=== PATIENT | female | born 1965 | race Caucasian/White ===

== ENCOUNTER 2017-05-30 22:38 | Inpatient (IN) | payer BC ==
[2017-05-30 23:16] VITALS: BMI 36.0
--- NOTE | 2017-05-31 00:16 | PDOC ---
History of Present Illness - General Chief Complaint: Blood Pressure Problem Stated Complaint: Blood Pressure Problem Time Seen by Provider: 05/30/17 23:34 tPA Exclusion Checklist 0-3hr - Time Elapsed Date last known well: 05/31/17 Time last known well: 06:00 Elaspsed time: 1 Day(s) and 20 Hour(s) and 33 Minutes - Thrombolytic Therapy Candidate Is the patient eligible for Thrombolytic Therapy?: No - Exclusion Criteria 0-3hr SBP greater than 185 or DBP greater than 110mmHg despite tx: No Recent IC/spinal surgery,head trauma or stroke w/in last 3mo: No Hx of previous IC hemorrhage, IC neoplasm, AVM or aneurysm: No Active internal bleeding: No Blding diathesis(low plt ct, inc PTT,INR>1.7 or use of NOAC): No Symptoms suggest subarachnoid hemorrhage: No CT demonstrates multilobar infarct(>1/3 cerebral hemiphere): No Arterial puncture at noncompressible site in previous 7 days: No Blood glucose concentration less than 50mg/dL (2.7mmol/L): No - Relative Exclusion Criteria 0-3h Life expectancy <1yr/severe co-morbid illness/ELECTRONICS DESIGN ENGINEER on admit: No : No Patient/family refused: No Rapid improvement: Yes Stroke severity too mild: Yes Recent acute MT (w/in previous 3 months): No Seizure at onset with postictal residual neuro impairments: No Major surgery or serious trauma w/in previous 14 days: No Recent GI or hemorrhage (w/in previous 21 days): No - Ineligibility reason(s) Reasons No tPA given: See reason(s) noted above (NO DEFICITS WHEN PATINET ARRIVED) NIH Stroke Scale - Last Known Well Date/Time & Onset Date Last Known Well: 05/31/17 Time Last Known Well: 06:00 - Initial Evaluation Level of consciousness: Alert Ask patient the month and their age: Answers both correctly Ask patient to open & close eyes; make fist and let go: Obeys both correctly Best gaze (horizontal eye movement): Normal Visual field testing: No visual field loss Facial paresis (Show teeth/raise eyebrows/close eyes tight): Normal symmetrical movement Motor Function: Left Arm: Normal Motor Function: Right Arm: Normal (extends arm 90 (or 45) degrees for 10 seconds without drift Motor Function: Left Leg: Normal (extends leg 30 degrees for 5 seconds without drift) Motor Function: Right Leg: Normal (extends leg 30 degrees for 5 seconds without drift) Limb Ataxia: No ataxia Sensory(Use pinprick test arms,legs,trunk,face/side to side): Normal Best language (Describe picture, name items, read sentences): No Aphasia Dysarthria (read several words): Normal articulation Extinction and Inattention: No abnormality - Total Score NIH Stroke Scale Score: 0 Past History - Past Medical History Allergies/Adverse Reactions: Allergies Allergy/AdvReac Type Severity Reaction Status Date / Time No Known Allergies Allergy Verified 05/30/17 23:12 Home Medications: Ambulatory Orders Losartan Potassium 50 mg PO BID 05/31/17 Acetaminophen [Tylenol .Extra-Strength -] 1,000 mg PO BID PRN #0 tablet Aspirin [ASA -] 81 mg PO DAILY #30 tab.chew 06/01/17 Atorvastatin Ca [Lipitor] 20 mg PO HS #30 tablet 06/01/17 Hydrochlorothiazide [Hctz -] 12.5 mg PO DAILY #30 cap 06/01/17 Metoprolol Succinate [Toprol Xl -] 25 mg PO BID #60 tab.sr.24h 06/01/17 HTN: Yes - Psycho/Social/Smoking Cessation Hx Suicidal Ideation: No Smoking History: Never smoked Information on smoking cessation initiated: No Hx Alcohol Use: No Drug/Substance Use Hx: No Substance Use Type: None *Physical Exam - Vital Signs Last Vital Signs Temp Pulse Resp BP Pulse Ox 98.1 F 72 20 170/105 98 05/30/17 23:13 05/30/17 23:13 05/30/17 23:13 05/30/17 23:13 05/30/17 23:13 ED Treatment Course - LABORATORY CBC & Chemistry Diagram: 06/01/17 05:35 05/31/17 05:40 *DC/Admit/Observation/Transfer Diagnosis at time of Disposition: TIA (transient ischemic attack) Qualifiers: Transient cerebral ischemia type: amaurosis fugax Qualified Code(s): G45.3 - Amaurosis fugax - Discharge Dispostion Disposition: HOME Condition at time of disposition: Stable - Prescriptions Attending Attestation - Resident Resident Name: Jose Alejandro Dunn - HPI HPI: 06/01/17 16:25 52 yo female who flew from [place] and experienced transient rt eye vision loss. PMH HTn 06/02/17 02:27 - Physicial Exam PE: 06/01/17 16:27 WNWD 52 yo female presents after an episode of transient rt eye vision loss HEENT head normocephalic,no evidence of trauma neck supple eyes -brice eomi throat wnl cvr [id number] lungs cta b/l abd protuberant.nontender skin warm,no rashes neuro NIHSS was done bedisde with resident ,NIHSS=zero 06/01/17 16:34 06/02/17 02:27 - Medical Decision Making 06/01/17 16:35 ct scan head done /spoke w Dr patiño,pt given ASA and plavix pt not candidate for TPA ,no deficts upon arrival Admitted for amaurosis fugax,pt requires further neuro w/u and imaging 06/02/17 02:27
[2017-05-31] MEDS ORDERED: ACETAMINOPHEN 325 MG TABLET (FP) PO ONE (00:28)
[2017-05-31] MEDS ORDERED: ACETAMINOPHEN 325 MG TABLET (FP) ONE (00:35)
--- NOTE | 2017-05-31 00:37 | PDOC ---
History of Present Illness - General Chief Complaint: Blood Pressure Problem Stated Complaint: Blood Pressure Problem Time Seen by Provider: 05/30/17 23:34 History Source: Patient Exam Limitations: No Limitations - History of Present Illness Initial Comments: 05/31/17 00:27 The patient is a 52F with a PMH of HTN, anxiety, GERD, who presents to the ED after an episode of R eye blindness. The patient states that she experienced complete blackout in the vision of her R eye for 5-10 seconds. At the same time , she experienced L foot tingling at the bottom of her foot. The eye blackout has resolved, but the L foot tingling persists but was present 1-2 months previously. This has never happened before. Meds: Losartan and lasix 20 Past surg: non-contributory Allergies: compozine, cipro, x-ray dye Past History - Past Medical History Allergies/Adverse Reactions: Allergies Allergy/AdvReac Type Severity Reaction Status Date / Time No Known Allergies Allergy Verified 05/30/17 23:12 Home Medications: Ambulatory Orders Losartan Potassium 50 mg PO BID 05/31/17 HTN: Yes - Psycho/Social/Smoking Cessation Hx Suicidal Ideation: No Smoking History: Never smoked Information on smoking cessation initiated: No Hx Alcohol Use: No Drug/Substance Use Hx: No Substance Use Type: None Review of Systems - Review of Systems Able to Perform ROS?: Yes Is the patient limited Bulgarian proficient: No Constitutional: No: Chills, Diaphoresis, Fever, Weakness HEENTM: Yes: Blurred Vision, Recent change in vision (R eye blackout) Respiratory: No: Cough, Shortness of Breath Cardiac (ROS): No: Chest Pain ABD/GI: No: Other (Abd pain) : No: Dysuria, Discharge Neurological: Yes: Headache, Tingling (On bottom of L foot). No: Numbness, Paresthesia, Weakness *Physical Exam - Vital Signs Last Vital Signs Temp Pulse Resp BP Pulse Ox 98.1 F 72 20 170/105 98 05/30/17 23:13 05/30/17 23:13 05/30/17 23:13 05/30/17 23:13 05/30/17 23:13 - Physical Exam General Appearance: Yes: Nourished, Appropriately Dressed. No: Apparent Distress HEENT: positive: Normal Voice. negative: Pale Conjunctivae, Scleral Icterus (R) , Scleral Icterus (L) Neck: positive: Trachea midline Respiratory/Chest: positive: Lungs Clear, Normal Breath Sounds. negative: Chest Tender, Respiratory Distress, Accessory Muscle Use Cardiovascular: positive: Regular Rhythm, Regular Rate, S1, S2, Edema (b/l lower extremity) Gastrointestinal/Abdominal: positive: Flat, Soft. negative: Tender, Guarding, Rebound, Tenderness Extremity: positive: Normal Inspection, Normal Range of Motion, Pelvis Stable Integumentary: positive: Dry, Warm, Swelling. negative: Cyanotic, Rash Neurologic: positive: balling head tender II-XII NML intact, Fully Oriented, Alert, Normal Mood/ Affect, Normal Response, Motor Strength 5/5, Responsive, Finger to Nose (Normal) , Other (0 on NIH score). negative: Numbness, Sensory Deficit, Confused, Disoriented, Depressed Affect Heart Score/ECG Review - History History: Slightly suspicious - Electrocardiogram EKG: Non specific repolarization disturbance - Age Age: 45-65 - Risk Factors Risk Factors Heart Score: Yes Hx Hypertension - ECG Intrepretation Rhythm: Regular Rhythm - Jackson Jackson: Normal - ECG Impressions Normal ECG: No Comment:: 05/31/17 01:42 T wave inversions in III and V1. Q wave present in II. No EKG to compare. Cardiac set ordered after reading EKG. ED Treatment Course - LABORATORY CBC & Chemistry Diagram: 05/31/17 00:37 05/31/17 00:37 - RADIOLOGY Radiology Studies Ordered: Category Date Time Status HEAD CT WITHOUT CONTRAST [CT] Stat CT Scan 05/31/17 00:19 Ordered Medical Decision Making - Medical Decision Making 05/31/17 00:41 Patient is a 52F with a PMH of HTN, anxiety, and GERD who presents to the ED s/ p R eye visual disturbances and L foot tingling. With the patient's medical history, a TIA/stroke must be ruled out. Repeat BP in room was 178/111. I have ordered labs and a head CT. Will update patient as labs/imaging comes in. 05/31/17 01:43 EKG showed signs of ischemia, down going T-waves. See EKG reading. Cardiac profile ordered. Patient had head CT. Will monitor for results. 05/31/17 02:07 CT results show: Focus of low density right martínez. Indeterminate for infarct. Correlate with symptoms. No other infarct is identified. Please note that infarcts less than 6 hours old may not be detectable on CT. Obtain MRI if indicated. No hemorrhage. No mass. No shift or herniation. Osseous structures are intact. We have spoken to the neurologist and he agrees on admitting the patient. *DC/Admit/Observation/Transfer Diagnosis at time of Disposition: Transient cerebral ischemia Qualifiers: Transient cerebral ischemia type: amaurosis fugax Qualified Code(s): G45.3 - Amaurosis fugax - Discharge Dispostion Condition at time of disposition: Stable Admit: Yes - Referrals Referrals: Valentine Dejesus MD [Primary Care Provider] - - Attestations Physician Attestion: 05/31/17 02:13 I, Dr. Jose Alejandro Dunn, attest that this document has been prepared under my direction and personally reviewed by me in its entirety. I further attest, that it accurately reflects all work, treatment, procedures and medical decision -making performed by me.
[2017-05-31 00:47] LABS: MCH 27.7 pg (25.7-33.7); MCHC 32.1 g/dl (32.0-36.0); MEAN CELL VOLUME 86.4 fl (80-96); MEAN PLT VOLUME 9.7 fl (7.5-11.1); PLATELET COUNT 249 K/MM3 (134-434); RDW 13.9 % (11.6-15.6); WHITE BLOOD COUNT 7.2 K/mm3 (4.0-10.0)
[2017-05-31] MEDS ORDERED: ASPIRIN 81 MG CHEWABLE TABLETS PO ONE (00:52)
[2017-05-31 01:14] LABS: ALBUMIN 3.9 g/dl (3.4-5.0); ANION GAP 9 (8-16); BILIRUBIN,TOTAL 0.5 mg/dL (0.2-1.0); CALCIUM 9.7 mg/dL (8.5-10.1); CO2 26 mmol/L (21-32); CREATININE 0.5 mg/dL (0.55-1.02); GLUCOSE,RANDOM 88 mg/dL (74-106); MAGNESIUM 2.4 mg/dL (1.8-2.4); SGOT/AST 22 U/L (15-37); SGPT/ALT 30 U/L (12-78); TOT PROT 7.4 g/dl (6.4-8.2)
[2017-05-31 01:16] LABS: ALK PHOS 66 U/L (45-117); TROPONIN I < 0.02 ng/ml (0.00-0.05)
[2017-05-31] MEDS ORDERED: ATORVASTATIN CA 80 MG TABLET (FP) PO ONE (02:05)
[2017-05-31] MEDS ORDERED: CLOPIDOGREL BISULFATE 75 MG TABLET (FP) PO ONE ×2 (02:23→02:33)
[2017-05-31] MEDS ORDERED: ATORVASTATIN CA 80 MG TABLET (FP) ONE (02:26)
[2017-05-31] MEDS ORDERED: ATORVASTATIN CA 10 MG TABLET (FP) PO ONE (02:29)
[2017-05-31 04:03] LABS: INR 1.02 (0.82-1.09); PROTHROMBIN TIME (PATIENT) 11.2 SEC (9.98-11.88)
[2017-05-31 06:27] LABS: ALBUMIN 3.6 g/dl (3.4-5.0); ALK PHOS 61 U/L (45-117); ANION GAP 8 (8-16); BILIRUBIN,TOTAL 0.5 mg/dL (0.2-1.0); CALCIUM 9.4 mg/dL (8.5-10.1); CO2 26 mmol/L (21-32); CREATININE 0.5 mg/dL (0.55-1.02); GLUCOSE,RANDOM 93 mg/dL (74-106); SGOT/AST 16 U/L (15-37); SGPT/ALT 25 U/L (12-78); TOT PROT 6.9 g/dl (6.4-8.2)
[2017-05-31 07:51] LABS: BASOPHIL 0.8 % (0-2.0); EOSINOPHIL 1.7 % (0-4.5); MCH 28.3 pg (25.7-33.7); MEAN CELL VOLUME 85.7 fl (80-96); MEAN PLT VOLUME 9.8 fl (7.5-11.1); NEUTROPHILS 42.4 % (42.8-82.8); PLATELET COUNT 205 K/MM3 (134-434); RDW 13.8 % (11.6-15.6); WHITE BLOOD COUNT 5.4 K/mm3 (4.0-10.0)
--- NOTE | 2017-05-31 07:54 | CON.NEURO ---
Consult - History of Present Illness History of Present Illness: HPI 52 year old female hsitory of htn, anxiety and reflux . she came to emergency after experiencing right eye blindness for few hours. She has travelled from [place] to [facility] on may 30. On the way to [place], she has headhace as well. Patient noticed that she cant see anything from right eye and was complete dark. She denies any prior eye problem. She takes losartan and prilosec at home. Her bp at home was very high , diastolic upto 135 and she called her pmd in [place] and advise to take extra losartan. Patient is feeling fine and had ct scan of brain and showed there is lacunar ( old ) in brain stem - Alcohol/Substance Use Hx Alcohol Use: No - Smoking History Smoking history: Never smoked Home Medications - Allergies Allergies/Adverse Reactions: Allergies Allergy/AdvReac Type Severity Reaction Status Date / Time No Known Allergies Allergy Verified 05/30/17 23:12 - Home Medications Home Medications: Ambulatory Orders Losartan Potassium 50 mg PO BID 05/31/17 Physical Exam-Neuro Vital Signs: Vital Signs Temperature 98.6 F 05/31/17 02:06 Pulse Rate 67 05/31/17 02:06 Respiratory Rate 05/31/17 02:06 Blood Pressure 138/68 05/31/17 02:06 O2 Sat by Pulse Oximetry (%) 96 05/31/17 02:06 Labs: CBC, BMP 05/31/17 05:40 INR, PTT INR 1.02 (0.82-1.09) 05/31/17 03:34 - Neuro Exam Cranial Nerves II-XII Intact: Yes Babinski: Present Motor Strength: 5/5: Left Arm, Right Arm, Left Leg, Right Leg NIH Stroke Scale - Total Score NIH Stroke Scale Score: 0 Imaging - Results Cat Scan: Report Reviewed Assessment/Plan cc transient painless right eye blindness HPI 52 year old female hsitory of htn, anxiety and reflux . she came to emergency after experiencing right eye blindness for few hours. [place] travelled from [place] to [facility] on may 30. On the way to [place], she has headhace as well. Patient noticed that she cant see anything from right eye and was complete dark. She denies any prior eye problem. She takes losartan and prilosec at home. Her bp at home was very high , diastolic upto 135 and she called her pmd in [place] and advise to take extra losartan. Patient is feeling fine and had ct scan of brain and showed there is lacunar ( old ) in brain stem Meds: Losartan and lasix 20 Past surg: non-contributory Allergies: compozine, cipro, x-ray dye ROS and Social history reviewed in chart Neurological examination BP 178/111 Alert oriented x 3, speech is normal eomi, no face asymmetry, no sensory loss on face and pupils are reactive visual field normal by confrontation motor 5/5 all normal sensation is normal reflex are normal ct head showed lacunar infarct Assessment- amurosis fugox , risk factor htn Plan mri of brain and mra of neck - continue aspirin and plavix for now, for long-term she would need only one - continue statin for now - optho consult thanks for consult jessika patiño md Neurology Attending.
--- NOTE | 2017-05-31 08:10 | HP ---
Admitting History and Physical - Admission History of Present Illness: 52 year old female hsitory of htn, anxiety and reflux . she came to emergency after experiencing right eye blindness for few hours. She has travelled from [place] to [place] on may 30. On the way to [place], she has headache as well. Patient noticed that she cant see anything from right eye and was complete dark. She denies any prior eye problem. She takes losartan and prilosec at home. Her bp at home was very high , diastolic upto 135 and she called her pmd in [place] and advise to take extra losartan. Patient is feeling fine and had ct scan of brain and showed there is lacunar ( old ) in brain stem - Past Medical History Cardiovascular: Yes: HTN Gastrointestinal: Yes: GERD Psych: Yes: Anxiety, Panic - Smoking History Smoking history: Never smoked - Alcohol/Substance Use Hx Alcohol Use: No Home Medications - Allergies Allergies/Adverse Reactions: Allergies Allergy/AdvReac Type Severity Reaction Status Date / Time No Known Allergies Allergy Verified 05/30/17 23:12 - Home Medications Home Medications: Ambulatory Orders Losartan Potassium 50 mg PO BID 05/31/17 Acetaminophen [Tylenol .Extra-Strength -] 1,000 mg PO BID PRN #0 tablet Aspirin [ASA -] 81 mg PO DAILY #30 tab.chew 06/01/17 Atorvastatin Ca [Lipitor] 20 mg PO HS #30 tablet 06/01/17 Hydrochlorothiazide [Hctz -] 12.5 mg PO DAILY #30 cap 06/01/17 Metoprolol Succinate [Toprol Xl -] 25 mg PO BID #60 tab.sr.24h 06/01/17 Review of Systems - Review of Systems Eyes: reports: Other (loss of vision in right eye lasting in 15 seconds) Cardiovascular: denies: Chest Pain, Palpitations Respiratory: denies: SOB, SOB on Exertion Gastrointestinal: denies: Abdominal Pain Neurological: reports: Headache, Other (loss of vision for 15 seconds). denies : Change in Speech, Confusion, Dizziness, Numbness Physical Examination Vital Signs: Vital Signs Temperature 98.6 F 05/31/17 02:06 Pulse Rate 67 05/31/17 02:06 Respiratory Rate 05/31/17 02:06 Blood Pressure 138/68 05/31/17 02:06 O2 Sat by Pulse Oximetry (%) 96 07/17/17 02:06 Cardiovascular: Yes: Murmur, S1, S2 Respiratory: Yes: Regular, CTA Bilaterally Gastrointestinal: Yes: Normal Bowel Sounds, Soft Edema: No Neurological: Yes: Alert, Oriented. No: Ataxia, Facial Droop, Unsteady Gait, Weakness Labs: CBC, BMP 05/31/17 05:50 05/31/17 05:40 Imaging - Results Cat Scan: Report Reviewed (old cva) Problem List - Problems (1) TIA (transient ischemic attack) Assessment/Plan: NEUROLOGY CONSULT NOTED CONTINUE WITH ASA/PLAVIX CAROTID US MRI/MRA STATIN Code(s): G45.9 - TRANSIENT CEREBRAL ISCHEMIC ATTACK, UNSPECIFIED Qualifiers: Transient cerebral ischemia type: amaurosis fugax Qualified Code(s): G45.3 - Amaurosis fugax (2) Amaurosis fugax of right eye Assessment/Plan: ABOVE OPHTHALMOLOGY Code(s): G45.3 - AMAUROSIS FUGAX (3) HTN (hypertension) Assessment/Plan: MONITOR OIN MEDS ECHO Code(s): I10 - ESSENTIAL (PRIMARY) HYPERTENSION (4) Anxiety Code(s): F41.9 - ANXIETY DISORDER, UNSPECIFIED (5) Abnormal EKG Assessment/Plan: FOLLOW CE ECHO CARDIO Code(s): R94.31 - ABNORMAL ELECTROCARDIOGRAM [ECG] [EKG] (6) Lymphocytosis Assessment/Plan: FOLLOW UP CBCD Code(s): D72.820 - LYMPHOCYTOSIS (SYMPTOMATIC) (7) Chronic headaches Assessment/Plan: AWAIT W/U NEURO Code(s): R51 - HEADACHE
[2017-05-31 08:47] LABS: CHOLESTEROL 205 mg/dL (50-200); LDL CHOLESTEROL (ONLY SJRH) 129 mg/dL (5-100)
[2017-05-31 08:54] LABS: THYROID STIMULATING HORMONE 1.49 uIU/ml (0.358-3.74)
[2017-05-31] MEDS: LOSARTAN POTASSIUM 50 MG TABLET (FP) PO SCH ×2 (10:07→21:06)
[2017-05-31] MEDS: HEPARIN NA (PORCINE) 5,000 UNITS/ML 1ML VIAL SQ SCH ×2 (10:07→21:07)
[2017-05-31] MEDS: ASPIRIN 325 MG TABLET PO SCH (10:07)
[2017-05-31] MEDS: CLOPIDOGREL BISULFATE 75 MG TABLET (FP) PO SCH (10:08)
--- NOTE | 2017-05-31 12:34 | EKG ---
Test Reason : Blood Pressure : / mmHG Vent. Rate : 061 BPM Atrial Rate : 061 BPM P-R Int : 158 ms QRS Dur : 080 ms QT Int : 414 ms P-R-T Axes : 030 010 022 degrees QTc Int : 416 ms NORMAL SINUS RHYTHM POSSIBLE INFERIOR INFARCT , AGE UNDETERMINED ABNORMAL ECG NO PREVIOUS ECGS AVAILABLE Confirmed by TEQUILA SPARKS MD ([id number]) on 05/31/2017 12:34:17 PM Referred By: Confirmed By:TEQUILA SPARKS MD
--- NOTE | 2017-05-31 14:58 | CON.CARD ---
Consult Consult Specialty:: Cardiology Referred by:: Yaneli Reason for Consultation:: CVA - History of Present Illness Chief Complaint: eye blindness History of Present Illness: 52 year old female hsitory of htn, anxiety and gerd who presents to ER with right eye blindness for few hours. Patient travelled from [place] to [place] yesterday and complained of headache. Than noticed that she cant see anything from right eye. She denies any prior eye problem. She takes losartan and prilosec at home. Her bp at home was very high , diastolic up to 135 and she called her pmd and was advised to take extra losartan. CT head: is lacunar ( old ) in brain stem - History Source History Provided By: Patient, Medical Record - Past Medical History Cardio/Vascular: Yes: HTN Gastrointestinal: Yes: GERD Psych: Yes: Anxiety, Panic - Alcohol/Substance Use Hx Alcohol Use: No - Smoking History Smoking history: Never smoked Home Medications - Allergies Allergies/Adverse Reactions: Allergies Allergy/AdvReac Type Severity Reaction Status Date / Time No Known Allergies Allergy Verified 05/30/17 23:12 - Home Medications Home Medications: Ambulatory Orders Losartan Potassium 50 mg PO BID 05/31/17 Acetaminophen [Tylenol .Extra-Strength -] 1,000 mg PO BID PRN #0 tablet Aspirin [ASA -] 81 mg PO DAILY #30 tab.chew 06/01/17 Atorvastatin Ca [Lipitor] 20 mg PO HS #30 tablet 06/01/17 Hydrochlorothiazide [Hctz -] 12.5 mg PO DAILY #30 cap 06/01/17 Metoprolol Succinate [Toprol Xl -] 25 mg PO BID #60 tab.sr.24h 06/01/17 Vital Signs: Vital Signs Temperature 97.5 F L 05/31/17 08:17 Pulse Rate 63 05/31/17 11:50 Respiratory Rate 20 05/31/17 11:50 Blood Pressure 164/100 05/31/17 11:50 O2 Sat by Pulse Oximetry (%) 96 05/31/17 11:50 Constitutional: Yes: No Distress Neck: Yes: WNL, Supple Respiratory: Yes: Regular, CTA Bilaterally Gastrointestinal: Yes: Normal Bowel Sounds, Soft Cardiovascular: Yes: Regular Rate and Rhythm JVD: No Carotid Bruit: No Heart Sounds: Yes: S1, S2 Murmur: No: Systolic Murmur Extremities: Yes: WNL Edema: No - Other Data Labs, Other Data: CBC, BMP 05/31/17 05:50 05/31/17 05:40 INR, PTT INR 1.02 (0.82-1.09) 05/31/17 03:34 Imaging - Results Chest X-ray: Report Reviewed Cat Scan: Report Reviewed EKG: Image Reviewed Problem List - Problems (1) Amaurosis fugax of right eye Code(s): G45.3 - AMAUROSIS FUGAX (2) HTN (hypertension) Code(s): I10 - ESSENTIAL (PRIMARY) HYPERTENSION Qualifiers: Hypertension type: essential hypertension Qualified Code(s): I10 - Essential (primary) hypertension Assessment/Plan Assessment/Plan 52 year old female hsitory of htn, anxiety and gerd presenting with acute right eye blindness CT head old lacunar infarct no acute ischemic changes CXR: no active pulmonary disease Echocardiogram with normal LVEF/wall motion and mild to moderate MR EKG: sinus rhythm at 61bpm, nl axis, nl st segments MRA no carotid stenosis MRI no infarct -F/u neuro recommendations -On aspirin/statin/bp control BP control on losartan and metoprolol. -No events on telemetry. Patient should have skilled nursing event monitor placed. Patient is going back to [place] and says she will call her recruiter manager right away and ask for event monitor. Will follow up care in [place].
[2017-05-31] MEDS ORDERED: HYDROCHLOROTHIAZIDE 25 MG TABLET (FP) PO ONE (16:08)
--- NOTE | 2017-05-31 16:57 | EKG ---
Test Reason : Blood Pressure : / mmHG Vent. Rate : 072 BPM Atrial Rate : 072 BPM P-R Int : 160 ms QRS Dur : 082 ms QT Int : 396 ms P-R-T Axes : 021 027 029 degrees QTc Int : 433 ms NORMAL SINUS RHYTHM CANNOT RULE OUT ANTERIOR INFARCT (CITED ON OR BEFORE 31-MAY-2017) ABNORMAL ECG WHEN COMPARED WITH ECG OF 31-MAY-2017 00:43, NO SIGNIFICANT CHANGE WAS FOUND Confirmed by CLARE GONZALES, TEQUILA ([id number]) on 05/31/2017 4:57:03 PM Referred By: ABDI PICKARD Confirmed By:TEQUILA SPARKS MD
[2017-05-31] MEDS: METOPROLOL TARTRATE 25 MG TABLET (FP) PO SCH (21:06)
[2017-05-31] MEDS ORDERED: ATORVASTATIN CA 40 MG TABLET (FP) PO SCH (22:00)
[2017-06-01 07:26] LABS: BASOPHIL 0.6 % (0-2.0); EOSINOPHIL 1.7 % (0-4.5); MCH 28.6 pg (25.7-33.7); MCHC 33.2 g/dl (32.0-36.0); MEAN CELL VOLUME 86.2 fl (80-96); MEAN PLT VOLUME 9.9 fl (7.5-11.1); NEUTROPHILS 39.8 % (42.8-82.8); PLATELET COUNT 217 K/MM3 (134-434); RDW 13.9 % (11.6-15.6); WHITE BLOOD COUNT 5.4 K/mm3 (4.0-10.0)
[2017-06-01 07:55] LABS: CHOLESTEROL 183 mg/dL (50-200); LDL CHOLESTEROL (ONLY SJRH) 103 mg/dL (5-100)
--- NOTE | 2017-06-01 08:35 | DS ---
Physical Examination Vital Signs: Vital Signs Temperature 97.7 F 06/01/17 06:00 Pulse Rate 63 06/01/17 06:00 Respiratory Rate 20 06/01/17 06:00 Blood Pressure 130/79 06/01/17 06:00 O2 Sat by Pulse Oximetry (%) 96 06/01/17 04:00 Findings/Remarks: feels better no cp or sob mtz this am--better now Neck: Yes: Supple Cardiovascular: Yes: Regular Rate and Rhythm Respiratory: Yes: Regular, CTA Bilaterally Gastrointestinal: Yes: Normal Bowel Sounds, Soft Neurological: Yes: Alert, Oriented. No: Ataxia, Confusion, Loss of Sensation, Numbness, Tremors Labs: CBC, BMP 06/01/17 05:35 05/31/17 05:40 Discharge Summary Reason For Visit: TRANSIENT CEREBRAL ISCHEMIA ATTACH Current Active Problems Abnormal EKG (Acute) Amaurosis fugax of right eye (Acute) Anxiety (Acute) HTN (hypertension) (Acute) TIA (transient ischemic attack) (Acute) Hospital Course: Problems (1) TIA (transient ischemic attack) Assessment/Plan: NEUROLOGY CONSULT NOTED D/W NEURO CONTINUE WITH ASA 81 MG CAROTID US NEG MRI--HYPERTENSIVE CHANGES MRA NO STENOSIS CONTINUE WITH STATIN Code(s): G45.9 - TRANSIENT CEREBRAL ISCHEMIC ATTACK, UNSPECIFIED Qualifiers: Transient cerebral ischemia type: amaurosis fugax Qualified Code(s): G45.3 - Amaurosis fugax (2) Amaurosis fugax of right eye Assessment/Plan: ABOVE OPHTHALMOLOGY CONSULT Code(s): G45.3 - AMAUROSIS FUGAX (3) HTN (hypertension) Assessment/Plan: MONITOR ON MEDS ECHO--NL LV Code(s): I10 - ESSENTIAL (PRIMARY) HYPERTENSION (4) Anxiety MONITOR Code(s): F41.9 - ANXIETY DISORDER, UNSPECIFIED (5) Abnormal EKG Assessment/Plan: CE NEGATIVE--CONSIDER STRESS TEST OUTPATIENT ECHO NL LV--VALVULAR HEART DS CARDIO NOTED Code(s): R94.31 - ABNORMAL ELECTROCARDIOGRAM [ECG] [EKG] (6) Lymphocytosis Assessment/Plan: PERSISTENT HEM CONSULT Code(s): D72.820 - LYMPHOCYTOSIS (SYMPTOMATIC) (7) Chronic headaches Assessment/Plan: MRI ABOVE TYLENOL Code(s): R51 - HEADACHE (8) Valvulvular Heart Disease Assessment/Plan: mild to moderate MR monitor Condition: Stable - Instructions Referrals: Valentine Dejesus MD [Primary Care Provider] - - Home Medications Comprehensive Discharge Medication List: Ambulatory Orders Losartan Potassium 50 mg PO BID 05/31/17 Acetaminophen [Tylenol .Extra-Strength -] 1,000 mg PO BID PRN #0 tablet Aspirin [ASA -] 81 mg PO DAILY #30 tab.chew 06/01/17 Atorvastatin Ca [Lipitor] 20 mg PO HS #30 tablet 06/01/17 Hydrochlorothiazide [Hctz -] 12.5 mg PO DAILY #30 cap 06/01/17 Metoprolol Succinate [Toprol Xl -] 25 mg PO BID #60 tab.sr.24h 06/01/17
--- NOTE | 2017-06-01 09:19 | PN ---
Progress Note (short form) - Note Progress Note: cc transient painless right eye blindness starting evening of May 30, symptom resolved HPI 52 year old female hsitory of htn, anxiety and reflux . she came to emergency after experiencing right eye blindness for few hours. She has travelled from [place] to [facility] on may 30. On the way to [place], she has headhace as well. Patient noticed that she cant see anything from right eye and was complete dark. She denies any prior eye problem. She takes losartan and prilosec at home. Her bp at home was very high , diastolic upto 135 and she called her pmd in [place] and advise to take extra losartan. 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
[2017-06-01] MEDS: HEPARIN NA (PORCINE) 5,000 UNITS/ML 1ML VIAL SQ SCH (09:46)
[2017-06-01] MEDS: LOSARTAN POTASSIUM 50 MG TABLET (FP) PO SCH (09:49)
[2017-06-01] MEDS: ASPIRIN 325 MG TABLET PO SCH (09:50)
[2017-06-01] MEDS: METOPROLOL TARTRATE 25 MG TABLET (FP) PO SCH (09:50)
[2017-06-01] MEDS: CLOPIDOGREL BISULFATE 75 MG TABLET (FP) PO SCH (09:50)
--- NOTE | 2017-06-01 11:56 | CONSULT ---
Consult - text type - Consultation Consultation Note: Ophthalmology consult 52 year old woman with transient loss of vision right eye yesterday - resolved spontaneously in minutes (pt states that she walked out of the room she was in and already the vision was clearing up), pt reports a headache prior to incident , now better Vision, near OD 20/30, OS 20/30 Pupils 3/3 --> 3+/3+, no APD OU EOM full OU with penlight, anterior exam WNL both eyes (no injection OD) FT soft OU with direct, brief view of edge of ON, appears sharp, not swollen - clear view, no heme Imp/Plan Transient loss of vision right eye - likely not ocular in nature due to quick return of vision, but needs full outpatient ophthalmology exam. Pt with history of HTN. Continue current management. Pt advised to follow up with ophthalmology as outpatient either here in [place] if staying here long enough, or back home in [place] if she is returning right away
--- NOTE | 2017-06-01 12:37 | CONSULT ---
Consult Consult Specialty:: Hematology/Oncology Referred by:: Reason for Consultation:: Lymphocytosis - History of Present Illness History of Present Illness: Ms Santana is a 52 year old female is admitted with Amaurosis fugax. She has hsitory of htn, anxiety and reflux . She is originally from [place], She is on her way to [place]. As a part of her travel she stopped in [place]. During her flight, sh started to experience sever headache, which did not resolve post arrival. Then she noticed that she went blind in her right eye, never happened before and incidentally her SBP at that time was in 200s, leading her to come to the ER. She denies any prior eye problem. She takes losartan and prilosec at home. During her hospitalization, she underwent CTH/MRI/MRA/TTE/ECG, seen by Neuro/ Cardiology/Ophthalmology. Hematology was called to evaluate the high Lymphocyte percent in her CBC. She is seen and examined. At this time she is completely asymptomatic. She denies any headache, chest pain. She denies any unintentional weight loss, night sweats or lymphadenopathy. On a side note, her is recently diagnosed with NLPHL and completed Ritux , he was a survivor of DLBCL in 2003. Her son is in Medical school in the [employer]. - History Source History Provided By: Patient Limitations to Obtaining History: No Limitations - Past Medical History Cardio/Vascular: Yes: HTN Gastrointestinal: Yes: GERD Psych: Yes: Anxiety, Panic - Alcohol/Substance Use Hx Alcohol Use: No - Smoking History Smoking history: Never smoked Home Medications - Allergies Allergies/Adverse Reactions: Allergies Allergy/AdvReac Type Severity Reaction Status Date / Time No Known Allergies Allergy Verified 05/30/17 23:12 - Home Medications Home Medications: Ambulatory Orders Losartan Potassium 50 mg PO BID 05/31/17 Acetaminophen [Tylenol .Extra-Strength -] 1,000 mg PO BID PRN #0 tablet Aspirin [ASA -] 81 mg PO DAILY #30 tab.chew 06/01/17 Atorvastatin Ca [Lipitor] 20 mg PO HS #30 tablet 06/01/17 Hydrochlorothiazide [Hctz -] 12.5 mg PO DAILY #30 cap 06/01/17 Metoprolol Succinate [Toprol Xl -] 25 mg PO BID #60 tab.sr.24h 06/01/17 Family Disease History - Family Disease History Family History: Unremarkable (aunt- Breast ca, Father-Prostate ca. Uncle(smoker ) -lung Ca, - NHL) Review of Systems - Review of Systems Constitutional: reports: No Symptoms. denies: Chills, Diaphoresis, Fever, Unintentional Wgt. Loss, Weakness Eyes: reports: No Symptoms, Other (resolved sx) HENT: denies: Mouth Swelling Neck: denies: Lumps, Pain on Movement, Swollen Glands, Tenderness Cardiovascular: denies: Chest Pain, Edema, Palpitations Respiratory: denies: Cough, Exercise Intolerance, Hemoptysis, Orthopnea Gastrointestinal: denies: Abdominal Pain, Constipation, Nausea, Vomiting Genitourinary: denies: Burning, Discharge, Dysuria, Menses Musculoskeletal: reports: No Symptoms Integumentary: reports: No Symptoms Neurological: reports: No Symptoms Hematology/Lymphatic: reports: No Symptoms Psychiatric: reports: Anxiety Physical Exam Vital Signs: Vital Signs Temperature 98.2 F 06/01/17 10:00 Pulse Rate 64 06/01/17 10:00 Respiratory Rate 20 06/01/17 10:00 Blood Pressure 131/76 06/01/17 10:00 O2 Sat by Pulse Oximetry (%) 96 06/01/17 10:00 Constitutional: Yes: Well Nourished, No Distress, Calm Eyes: Yes: Conjunctiva Clear, EOM Intact HENT: Yes: WNL, Atraumatic, Normocephalic Neck: Yes: Supple, Trachea Midline. No: Lymphadenopathy Cardiovascular: Yes: Regular Rate and Rhythm Respiratory: Yes: Regular, CTA Bilaterally. No: Accessory Muscle Use Gastrointestinal: Yes: Normal Bowel Sounds, Soft, Abdomen, Obese. No: Hepatomegaly Breast(s): Yes: WNL, Left, Right, Other (no palpable bilateral axillary lymphadenopathy) Edema: No Neurological: Yes: Alert, Oriented Labs: CBC, BMP 06/01/17 05:35 05/31/17 05:40 Imaging - Results Cat Scan: Report Reviewed MRI: Report Reviewed Other: Report Reviewed (ECHO) Problem List - Problems (1) Lymphocytosis Assessment/Plan: The Absolute Lymphocyte count is 2700, worrisome if goes more than 4800 ( and is persistent) . The rest of the lines (hemoglobin/Platelets) being normal is re -assuring. Smear reviewed. Requested to be sent for Flow cytometry, to rule out any clonality. Code(s): D72.820 - LYMPHOCYTOSIS (SYMPTOMATIC) (2) Amaurosis fugax of right eye Assessment/Plan: followed by Neuro/Ophtho. presently asymptomatic Code(s): G45.3 - AMAUROSIS FUGAX (3) HTN (hypertension) Code(s): I10 - ESSENTIAL (PRIMARY) HYPERTENSION Qualifiers: Hypertension type: essential hypertension Qualified Code(s): I10 - Essential (primary) hypertension (4) Screening due Assessment/Plan: Advised and counselled patient to consider undergoing recommended Cancer screening procedures, mammo, colonoscopy and Pap. Patient mentioned she will consider Code(s): [id number] -
[2017-06-01] MEDS: ACETAMINOPHEN 500 MG TABLET (FP) PO PRN ×2 (12:57→19:05)
[2017-06-01] MEDS ORDERED: traMADol HCL 50 MG TABLET PO ONE ×2 (15:45→16:00)
[2017-06-01] MEDS ORDERED: ACETAMINOPHEN 500 MG TABLET (FP) PO PRN (19:06)
[2017-06-01 20:52] VITALS: BP 132/80; PULSE 67; TEMP 98.3
--- NOTE | 2017-06-02 14:55 | EKG ---
Test Reason : Blood Pressure : / mmHG Vent. Rate : 073 BPM Atrial Rate : 073 BPM P-R Int : 154 ms QRS Dur : 080 ms QT Int : 390 ms P-R-T Axes : 030 023 034 degrees QTc Int : 429 ms NORMAL SINUS RHYTHM WITH SINUS ARRHYTHMIA CANNOT RULE OUT ANTERIOR INFARCT (CITED ON OR BEFORE 31-MAY-2017) ABNORMAL ECG WHEN COMPARED WITH ECG OF 31-MAY-2017 14:15, NO SIGNIFICANT CHANGE WAS FOUND Confirmed by ELIZABETH WINTER MD ([id number]) on 06/02/2017 2:55:15 PM Referred By: Confirmed By:ELIZABETH WINTER MD
--- NOTE | 2017-06-03 12:07 | PATH ---
Surgical Pathology Report Patient Name: EVA M[facility]. Rec. #: [id number] /Age/Gender: 1965 (Age: 52) / F Account: [id number] Location: [facility] PEDS/ADOL Taken: 06/01/2017 Received: 06/02/2017 Reported: 06/03/2017 Physicians: Nathan Haile M.D. Specimen(s) Received PERIPHERAL BLOOD 2 GREEN 2 LAVENDER Clinical History New onset lymphocytosis, rule out lymphoma Final Diagnosis PERIPHERAL BLOOD: FLOW CYTOMETRY performed and interpreted at [facility], [place], [place] ([id number]) shows the following: INTERPRETATION: In the sample analyzed, there is no evidence of B or T-cell proliferative disorders. Electronically Signed Joseph Franklin M.D. Gross Description Received are 2 green top tubes and 2 lavender top tubes of peripheral blood which are sent to [facility]. /06/02/2017 saudi/06/02/2017
== END 2017-06-01 20:30 | disposition home or self-care (01) | DRG 69 ==
LOC: JER 22:38 → JERBED 05-31 02:13 → UNDOADMIN 05-31 02:38 → J4S 05-31 15:55
PROVIDERS: ADMIT Family Medicine; ATTEND Family Medicine
DX: G45.9 Transient cerebral ischemic attack, unspecified (principal); G45.3 Amaurosis fugax; I10 Essential (primary) hypertension; F41.9 Anxiety disorder, unspecified; K21.9 Gastro-esophageal reflux disease without esophagitis; R20.2 Paresthesia of skin; R51 Headache; R94.31 Abnormal electrocardiogram [ECG] [EKG]; D72.820 Lymphocytosis (symptomatic); I34.0 Nonrheumatic mitral (valve) insufficiency
CPT/HCPCS: 36415; 70450-TC; 70547-TC; 70551-TC; 71020-TC; 80053; 80061; 82550; 83036; 83721; 83735; 84443; 84484; 85025; 85027; 85610; 85651; 88300-TC; 93005; 93010; 93306-TC; 93880-TC; 97116-GP; 99285-25; J1644